=== PATIENT | male | born 1975 | race Caucasian/White ===

== ENCOUNTER 2017-07-18 05:56 | Inpatient (IN) | payer OTHER, MEDICAID ==
[~2017-07-18] VITALS: Ht 157.5 cm; Wt 94.3 kg
[~2017-07-18 05:56] MED LIST: BENZ0.5T6 PO; CARB200T6 PO; DIVA500T35 PO; OMEP20 PO; RISP2TAB4 PO
[2017-07-18 09:41] VITALS: BP 137/78
[2017-07-18] MEDS ORDERED: ZOLPIDEM TARTRATE 10 MG TABLET PO PRN (10:00)
[2017-07-18] MEDS ORDERED: LORazepam 2 MG TABLET PO PRN (10:00)
[2017-07-18] MEDS ORDERED: HALOPERIDOL 5 MG TABLET PO PRN (10:00)
[2017-07-18 10:32] VITALS: BP 133/80
[2017-07-18] MEDS ORDERED: PNEUMOCOCCAL VACCINE POLYVALENT 0.5 ML VIAL [PPSV23] IM ONE (11:00)
[2017-07-18] MEDS: CarBAMazepine 200 MG TABLET PO SCH (12:36)
[2017-07-18 16:05] VITALS: BP 118/75
[2017-07-18] MEDS: BACITRACIN 28.4 GM OINTMENT TP SCH (16:38)
[2017-07-18] MEDS: BENZTROPINE MESYLATE 0.5 MG TABLET PO SCH (16:39)
[2017-07-18] MEDS: RisperiDONE 2 MG TABLET PO SCH (16:39)
[2017-07-18] MEDS: DIVALPROEX SODIUM 500 MG DR TABLET PO SCH (16:39)
[2017-07-19 00:04] VITALS: BP 115/60
[2017-07-19 07:02] LABS: BASOPHILS % (AUTO) 0.5 % (0.0-2.0); EOSINOPHILS % (AUTO) 2.2 % (1.0-6.0); HEMATOCRIT 38.2 % (41-53); LYMPHOCYTES % (AUTO) 26.1 % (22.0-44.0); MEAN CORPUSCULAR HEMOGLOBIN 29.5 pg (26.0-34.0); MEAN CORPUSCULAR VOLUME 87 fL (80-100); MONOCYTES # (AUTO) 0.8 K/uL (0.1-1.0); MONOCYTES % (AUTO) 10.6 % (2.0-9.0); NEUTROPHILS # (AUTO) 4.7 K/uL (1.8-7.7); NEUTROPHILS % (AUTO) 60.6 % (40.0-70.0); PLATELET COUNT (AUTO) 208 K/uL (150-450); RED CELL DISTRIBUTION WIDTH 14.5 % (11.5-14.5); WHITE BLOOD COUNT (AUTO) 7.8 K/uL (4.5-11.0)
[2017-07-19 07:18] LABS: HEMOGLOBIN A1C 5.9 % (4.5-6.2)
[2017-07-19 07:30] LABS: ALANINE AMINOTRANSFERASE 22 U/L (12-78); ALBUMIN 3.5 g/dL (3.4-5.0); ANION GAP 8 mmol/L (8-16); ASPARTATE AMINOTRANSFERASE 18 U/L (15-37); BILIRUBIN,TOTAL 0.2 mg/dL (0.1-1.0); CALCIUM, TOTAL 8.4 mg/dL (8.8-10.5); CARBON DIOXIDE 27 mmol/L (22-29); CHLORIDE 101 mmol/L (98-107); CHOL/HDL RATIO 4.4 (4.2-7.3); CREATININE 0.84 mg/dL (0.60-1.30); GLOMERULAR FILTR. RATE CALC > 60 mL/min (>60); POTASSIUM 4.4 mmol/L (3.5-5.1); SODIUM SERUM 136 mmol/L (136-145); THYROID STIMULATING HORMONE 3.37 uIU/mL (0.36-3.74); TOTAL PROTEIN, SERUM 6.6 g/dL (6.4-8.2); UREA NITROGEN, BLOOD 19 mg/dL (7-18)
[2017-07-19 08:05] VITALS: BP 116/74
[2017-07-19] MEDS: DIVALPROEX SODIUM 500 MG DR TABLET PO SCH ×2 (08:35→16:37)
[2017-07-19] MEDS: RisperiDONE 2 MG TABLET PO SCH ×2 (08:35→16:37)
[2017-07-19] MEDS: CarBAMazepine 200 MG TABLET PO SCH (08:35)
[2017-07-19] MEDS: BENZTROPINE MESYLATE 0.5 MG TABLET PO SCH ×2 (08:35→16:37)
[2017-07-19] MEDS: BACITRACIN 28.4 GM OINTMENT TP SCH ×2 (08:35→16:37)
[2017-07-19 16:10] VITALS: BP 119/72
[2017-07-19] MEDS ORDERED: IBUPROFEN 400 MG TABLET PO PRN (17:45)
[2017-07-19] MEDS ORDERED: ACETAMINOPHEN 325 MG TABLET PO PRN (17:45)
[2017-07-20 00:33] VITALS: BP 103/63
[2017-07-20] MEDS: CarBAMazepine 200 MG TABLET PO SCH (08:04)
[2017-07-20] MEDS: RisperiDONE 2 MG TABLET PO SCH (08:04)
[2017-07-20] MEDS: DIVALPROEX SODIUM 500 MG DR TABLET PO SCH (08:04)
[2017-07-20] MEDS: BENZTROPINE MESYLATE 0.5 MG TABLET PO SCH (08:04)
[2017-07-20] MEDS: BACITRACIN 28.4 GM OINTMENT TP SCH (08:05)
[2017-07-20 08:24] VITALS: BP 117/64
[2017-07-20 08:45] LABS: CHOL/HDL RATIO 4.3 (4.2-7.3)
[2017-07-20] MEDS ORDERED: OMEPRAZOLE 20 MG CAPSULE PO SCH (09:00)
== END 2017-07-20 11:25 | disposition home or self-care (01) | DRG 885 ==
LOC: EDSTATUS 05:57 → B2X 10:17
PROVIDERS: ADMIT Psychiatry & Neurology Child & Adolescent Psychiatry; ATTEND Psychiatry & Neurology Child & Adolescent Psychiatry
PROC: 3E0234Z Introduction of Serum, Toxoid and Vaccine into Muscle, Percutaneous Approach (ICD-10-PCS; principal; 2017-07-18)
DX: F31.64 Bipolar disorder, current episode mixed, severe, with psychotic features (principal); G40.909 Epilepsy, unspecified, not intractable, without status epilepticus; J44.9 Chronic obstructive pulmonary disease, unspecified; E03.9 Hypothyroidism, unspecified; E78.5 Hyperlipidemia, unspecified; K21.9 Gastro-esophageal reflux disease without esophagitis; M19.90 Unspecified osteoarthritis, unspecified site; Z23 Encounter for immunization
CPT/HCPCS: 83036; 84439; 84443; 90471; 99285

== ENCOUNTER 2018-04-20 23:24 | Emergency (ER) | payer MEDICARE, MEDICAID ==
[~2018-04-20] VITALS: Ht 185.4 cm; Wt 109.1 kg
[~2018-04-20 23:24] MED LIST changes: +BENZ0.5T44 PO; -BENZ0.5T6 PO
[2018-04-21 00:37] LABS: BASOPHILS % (AUTO) 0.8 % (0.0-2.0); EOSINOPHILS % (AUTO) 0.6 % (1.0-6.0); HEMATOCRIT 40.3 % (41-53); HEMOGLOBIN 14.1 g/dL (13.5-17.5); LYMPHOCYTES # (AUTO) 2.6 K/uL (1.0-4.8); LYMPHOCYTES % (AUTO) 21.1 % (22.0-44.0); MEAN CORPUSCULAR HEMOGLOBIN 29.1 pg (26.0-34.0); MEAN CORPUSCULAR HGB CONC 34.8 G/dL (31.0-37.0); MEAN CORPUSCULAR VOLUME 84 fL (80-100); MONOCYTES # (AUTO) 0.9 K/uL (0.1-1.0); MONOCYTES % (AUTO) 7.3 % (2.0-9.0); NEUTROPHILS # (AUTO) 8.8 K/uL (1.8-7.7); NEUTROPHILS % (AUTO) 70.2 % (40.0-70.0); PLATELET COUNT (AUTO) 299 K/uL (150-450); RED BLOOD CELL COUNT(AUTO) 4.82 MIL/uL (4.50-5.90); RED CELL DISTRIBUTION WIDTH 15.4 % (11.5-14.5)
[2018-04-21 00:49] LABS: ANION GAP 10 mmol/L (8-16); CALCIUM, TOTAL 9.1 mg/dL (8.8-10.5); CARBON DIOXIDE 29 mmol/L (22-29); CHLORIDE 99 mmol/L (98-107); CREATININE 0.91 mg/dL (0.60-1.30); GLOMERULAR FILTR. RATE CALC > 60 mL/min (>60); GLUCOSE,RANDOM 123 mg/dL (70-110); POTASSIUM 4.5 mmol/L (3.5-5.1); SODIUM SERUM 138 mmol/L (136-145); UREA NITROGEN, BLOOD 16 mg/dL (7-18)
[2018-04-21 00:56] LABS: ALANINE AMINOTRANSFERASE 19 U/L (12-78); ALBUMIN 3.8 g/dL (3.4-5.0); ALKALINE PHOSPHATASE 119 U/L (46-116); ASPARTATE AMINOTRANSFERASE 19 U/L (15-37); BILIRUBIN,TOTAL 0.3 mg/dL (0.1-1.0); TOTAL PROTEIN, SERUM 8.7 g/dL (6.4-8.2)
[2018-04-21 04:05] VITALS: BP 128/74
[2018-04-21] MEDS ORDERED: HALOPERIDOL 5 MG TABLET PO ONE (04:15)
== END 2018-04-21 04:58 | disposition home or self-care (01) ==
LOC: EMS 23:26
DX: F31.9 Bipolar disorder, unspecified (principal); F20.9 Schizophrenia, unspecified; M19.90 Unspecified osteoarthritis, unspecified site; F17.210 Nicotine dependence, cigarettes, uncomplicated
CPT/HCPCS: 36415; 80053; 85025; 99284; G0480

== ENCOUNTER 2021-08-08 09:47 | Inpatient (IN) | payer OTHER, MEDICAID ==
[~2021-08-08] VITALS: Ht 175.3 cm; Wt 97.5 kg
[~2021-08-08 09:47] MED LIST changes: +DIVA-112 PO; -DIVA500T35 PO
[2021-08-08] MEDS ORDERED: LORazepam 2 MG TABLET PO PRN (10:00)
[2021-08-08] MEDS ORDERED: ZOLPIDEM TARTRATE 10 MG TABLET PO PRN (10:00)
[2021-08-08] MEDS ORDERED: HALOPERIDOL 5 MG TABLET PO PRN (10:00)
[2021-08-08 14:46] VITALS: BP 112/68
[2021-08-08 15:26] VITALS: BP 120/80
[2021-08-08 16:10] VITALS: BP 110/67
[2021-08-08] MEDS: BusPIRone HCL 15 MG TABLET PO SCH (16:35)
[2021-08-08] MEDS: QUEtiapine FUMARATE 100 MG TABLET PO SCH (16:36)
[2021-08-08] MEDS: DIVALPROEX SODIUM 500 MG DR TABLET PO SCH (16:36)
[2021-08-08] MEDS: CHLORHEXIDINE GLUCONATE 0.12% 15 ML UDCUP ORAL RINSE PO SCH (17:00)
[2021-08-08 17:47] VITALS: BP 110/67
[2021-08-08] MEDS ORDERED: DOCUSATE SODIUM 100 MG CAPSULE PO PRN (19:30)
[2021-08-08] MEDS ORDERED: CloNIDine HCL 0.1 MG TABLET PO PRN (19:30)
[2021-08-08] MEDS ORDERED: IBUPROFEN 600 MG TABLET PO PRN (19:30)
[2021-08-08] MEDS ORDERED: ONDANSETRON HCL 4 MG TABLET PO PRN (19:30)
[2021-08-08] MEDS ORDERED: BACITRACIN 28 GM OINTMENT TP PRN (19:30)
[2021-08-08] MEDS ORDERED: PETROLATUM,WHITE 28 GM JELLY TP PRN (19:30)
[2021-08-08] MEDS ORDERED: MAGNESIUM HYDROXIDE SUSPENSION 30 ML UDCUP PO PRN (19:30)
[2021-08-08] MEDS ORDERED: ACETAMINOPHEN 325 MG TABLET PO PRN (19:30)
[2021-08-08] MEDS ORDERED: BENZOCAINE/MENTHOL LOZENGE PO PRN (19:30)
[2021-08-08] MEDS ORDERED: LOPERAMIDE HCL 2 MG CAPSULE PO PRN (19:30)
[2021-08-08] MEDS ORDERED: MAG HYDROX/AL HYDROX/SIMETH ES 30 ML SUSPENSION UDCUP PO PRN (19:30)
[2021-08-08] MEDS ORDERED: OMEPRAZOLE 20 MG CAPSULE PO PRN (19:30)
[2021-08-08] MEDS ORDERED: ALBUTEROL SULFATE HFA 90 MCG/PUFF 8 GM INHALER IH PRN (19:30)
[2021-08-08] MEDS ORDERED: AMOXICILLIN TRIHYDRATE 500 MG CAPSULE PO SCH (20:00)
[2021-08-08] MEDS: AMOXICILLIN TRIHYDRATE 500 MG CAPSULE PO SCH (20:10)
[2021-08-08] MEDS: TraZODone HCL 50 MG TABLET PO SCH (20:10)
[2021-08-08] MEDS: ATORVASTATIN CALCIUM 40 MG TABLET PO SCH (20:22)
[2021-08-08 21:50] VITALS: BP 112/71
[2021-08-09 01:51] VITALS: BP 110/73
[2021-08-09 07:39] LABS: BASOPHILS % (AUTO) 0.6 % (0.0-2.0); EOSINOPHILS % (AUTO) 1.8 % (1.0-6.0); HEMATOCRIT 39.7 % (41-53); HEMOGLOBIN 13.2 g/dL (13.5-17.5); LYMPHOCYTES # (AUTO) 2.2 K/uL (1.0-4.8); LYMPHOCYTES % (AUTO) 26.2 % (22.0-44.0); MEAN CORPUSCULAR HEMOGLOBIN 29.6 pg (26.0-34.0); MEAN CORPUSCULAR HGB CONC 33.3 G/dL (31.0-37.0); MEAN CORPUSCULAR VOLUME 89 fL (80-100); MONOCYTES # (AUTO) 0.6 K/uL (0.1-1.0); MONOCYTES % (AUTO) 7.4 % (2.0-9.0); NEUTROPHILS # (AUTO) 5.2 K/uL (1.8-7.7); PLATELET COUNT (AUTO) 223 K/uL (150-450); RED BLOOD CELL COUNT(AUTO) 4.47 MIL/uL (4.50-5.90)
[2021-08-09 07:54] LABS: HEMOGLOBIN A1C 6.3 % (3.8-5.6)
[2021-08-09] MEDS: CHLORHEXIDINE GLUCONATE 0.12% 15 ML UDCUP ORAL RINSE PO SCH ×2 (08:05→21:27)
[2021-08-09] MEDS: AMOXICILLIN TRIHYDRATE 500 MG CAPSULE PO SCH ×3 (08:05→16:02)
[2021-08-09] MEDS: LACTOBAC ACID/BULG/BIFID/THERM TABLET PO SCH (08:05)
[2021-08-09] MEDS: FLUoxetine HCL 20 MG CAPSULE PO SCH (08:06)
[2021-08-09] MEDS: CarBAMazepine 200 MG TABLET PO SCH (08:06)
[2021-08-09] MEDS: QUEtiapine FUMARATE 100 MG TABLET PO SCH ×2 (08:06→16:03)
[2021-08-09] MEDS: DIVALPROEX SODIUM 500 MG DR TABLET PO SCH ×2 (08:06→16:02)
[2021-08-09] MEDS: BusPIRone HCL 15 MG TABLET PO SCH ×3 (08:06→16:02)
[2021-08-09 08:11] LABS: ALANINE AMINOTRANSFERASE 37 U/L (12-78); ALBUMIN 3.6 g/dL (3.4-5.0); ALKALINE PHOSPHATASE 134 U/L (46-116); ANION GAP 9 mmol/L (8-16); ASPARTATE AMINOTRANSFERASE 27 U/L (15-37); BILIRUBIN,TOTAL 0.3 mg/dL (0.1-1.0); CALCIUM, TOTAL 8.5 mg/dL (8.8-10.5); CARBON DIOXIDE 27 mmol/L (22-29); CHLORIDE 104 mmol/L (98-107); CHOL/HDL RATIO 3.9 (4.2-7.3); CHOLESTEROL 116 mg/dL (131-200); CREATININE 0.76 mg/dL (0.60-1.30); FREE T4 (FREE THYROXINE) 0.96 ng/dL (0.76-1.46); GLOMERULAR FILTR. RATE CALC > 60 mL/min (>60); GLUCOSE,RANDOM 109 mg/dL (70-110); HDL CHOLESTEROL 30 mg/dL (40-60); LDL CHOL (CALC.) 66 mg/dL (0-130); POTASSIUM 4.4 mmol/L (3.5-5.1); SODIUM SERUM 140 mmol/L (136-145); THYROID STIMULATING HORMONE 1.87 uIU/mL (0.36-3.74); TOTAL PROTEIN, SERUM 7.4 g/dL (6.4-8.2); TRIGLYCERIDES 99 mg/dL (15-150); UREA NITROGEN, BLOOD 19 mg/dL (7-18)
[2021-08-09 08:30] VITALS: BP 121/78
[2021-08-09] MEDS: MULTIVITAMINS WITH MINERALS, THERAPEUTIC TABLET PO SCH (12:53)
[2021-08-09 16:04] VITALS: BP 112/65
[2021-08-09] MEDS: TraZODone HCL 50 MG TABLET PO SCH (21:27)
[2021-08-09] MEDS: ATORVASTATIN CALCIUM 40 MG TABLET PO SCH (21:27)
[2021-08-10] MEDS: BusPIRone HCL 15 MG TABLET PO SCH ×3 (08:03→16:09)
[2021-08-10] MEDS: CarBAMazepine 200 MG TABLET PO SCH (08:03)
[2021-08-10] MEDS: AMOXICILLIN TRIHYDRATE 500 MG CAPSULE PO SCH ×3 (08:03→16:09)
[2021-08-10] MEDS: LACTOBAC ACID/BULG/BIFID/THERM TABLET PO SCH (08:04)
[2021-08-10] MEDS: FLUoxetine HCL 20 MG CAPSULE PO SCH (08:04)
[2021-08-10] MEDS: QUEtiapine FUMARATE 100 MG TABLET PO SCH ×2 (08:04→16:09)
[2021-08-10] MEDS: CHLORHEXIDINE GLUCONATE 0.12% 15 ML UDCUP ORAL RINSE PO SCH ×2 (08:04→19:57)
[2021-08-10] MEDS: MULTIVITAMINS WITH MINERALS, THERAPEUTIC TABLET PO SCH (08:04)
[2021-08-10] MEDS: DIVALPROEX SODIUM 500 MG DR TABLET PO SCH ×2 (08:04→16:09)
[2021-08-10 08:50] VITALS: BP 125/75
[2021-08-10 16:09] VITALS: BP 119/61
[2021-08-10] MEDS: TraZODone HCL 50 MG TABLET PO SCH (19:57)
[2021-08-10] MEDS: ATORVASTATIN CALCIUM 40 MG TABLET PO SCH (19:57)
[2021-08-11 05:59] VITALS: BP 119/62
[2021-08-11] MEDS: LACTOBAC ACID/BULG/BIFID/THERM TABLET PO SCH (08:14)
[2021-08-11] MEDS: BusPIRone HCL 15 MG TABLET PO SCH ×3 (08:15→16:08)
[2021-08-11] MEDS: DIVALPROEX SODIUM 500 MG DR TABLET PO SCH ×2 (08:15→16:08)
[2021-08-11] MEDS: CarBAMazepine 200 MG TABLET PO SCH (08:15)
[2021-08-11] MEDS: FLUoxetine HCL 20 MG CAPSULE PO SCH (08:15)
[2021-08-11] MEDS: AMOXICILLIN TRIHYDRATE 500 MG CAPSULE PO SCH ×3 (08:15→16:08)
[2021-08-11] MEDS: QUEtiapine FUMARATE 100 MG TABLET PO SCH ×2 (08:16→16:10)
[2021-08-11] MEDS: CHLORHEXIDINE GLUCONATE 0.12% 15 ML UDCUP ORAL RINSE PO SCH ×2 (08:16→16:08)
[2021-08-11] MEDS: MULTIVITAMINS WITH MINERALS, THERAPEUTIC TABLET PO SCH (08:16)
[2021-08-11 08:22] VITALS: BP 129/70
[2021-08-11 16:03] VITALS: BP 105/64
[2021-08-11] MEDS: TraZODone HCL 50 MG TABLET PO SCH (20:00)
[2021-08-11] MEDS: ATORVASTATIN CALCIUM 40 MG TABLET PO SCH (20:00)
[2021-08-12 02:21] VITALS: BP 109/62
[2021-08-12] MEDS: FLUoxetine HCL 20 MG CAPSULE PO SCH (08:03)
[2021-08-12] MEDS: LACTOBAC ACID/BULG/BIFID/THERM TABLET PO SCH (08:04)
[2021-08-12] MEDS: MULTIVITAMINS WITH MINERALS, THERAPEUTIC TABLET PO SCH (08:04)
[2021-08-12] MEDS: QUEtiapine FUMARATE 100 MG TABLET PO SCH (08:04)
[2021-08-12 08:05] VITALS: BP 119/63
[2021-08-12] MEDS: AMOXICILLIN TRIHYDRATE 500 MG CAPSULE PO SCH ×2 (08:05→14:28)
[2021-08-12] MEDS: CarBAMazepine 200 MG TABLET PO SCH (08:05)
[2021-08-12] MEDS: BusPIRone HCL 15 MG TABLET PO SCH ×2 (08:05→14:28)
[2021-08-12] MEDS: DIVALPROEX SODIUM 500 MG DR TABLET PO SCH (08:05)
[2021-08-12] MEDS: CHLORHEXIDINE GLUCONATE 0.12% 15 ML UDCUP ORAL RINSE PO SCH (08:06)
[2021-08-12 13:15] LABS: GLUCOMETER DEV NAME(LOC) POC.BV
[2021-08-12] MEDS ORDERED: CARB100 PO (13:22)
[2021-08-12] MEDS ORDERED: ATOR40TA28 PO (13:25)
[2021-08-12] MEDS ORDERED: AMOX500C2 PO (13:25)
[2021-08-12] MEDS ORDERED: ACID1TAB13 PO (13:31)
[2021-08-12] MEDS ORDERED: BUSP15 PO (13:34)
[2021-08-12] MEDS ORDERED: QUET100T PO (13:35)
[2021-08-12] MEDS ORDERED: TRAZ-252 PO (13:36)
[2021-08-12] MEDS ORDERED: FLUO20CA36 PO (13:36)
== END 2021-08-12 19:26 | disposition home or self-care (01) | DRG 885 ==
LOC: B2X 13:34
PROVIDERS: ADMIT Psychiatry & Neurology Psychiatry; ATTEND Psychiatry & Neurology Psychiatry
DX: F25.9 Schizoaffective disorder, unspecified (principal); R45.851 Suicidal ideations; F32.9 Major depressive disorder, single episode, unspecified; F41.9 Anxiety disorder, unspecified; G40.909 Epilepsy, unspecified, not intractable, without status epilepticus; G47.00 Insomnia, unspecified; I10 Essential (primary) hypertension; K04.7 Periapical abscess without sinus; K21.9 Gastro-esophageal reflux disease without esophagitis; K59.00 Constipation, unspecified; Z20.822 Contact with and (suspected) exposure to COVID-19; Z79.899 Other long term (current) drug therapy
CPT/HCPCS: 80053; 80061; 80164; 83036; 84436; 84439; 84443; 85025

== ENCOUNTER 2022-05-07 04:15 | Emergency (ER) | payer MEDICARE, MEDICAID ==
[~2022-05-07] VITALS: Ht 175.3 cm; Wt 81.8 kg
[~2022-05-07 04:15] MED LIST changes: +ACID1TAB13 PO; +AMOX500C2 PO; +ATOR40TA28 PO; -BENZ0.5T44 PO; +BUSP15 PO; +FLUO20CA36 PO; -OMEP20 PO; +QUET100T PO; -RISP2TAB4 PO; +TRAZ-252 PO
[2022-05-07 04:54] LABS: BASOPHILS % (AUTO) 0.8 % (0.0-2.0); EOSINOPHILS % (AUTO) 1.5 % (1.0-6.0); HEMATOCRIT 34.5 % (41-53); LYMPHOCYTES # (AUTO) 2.3 K/uL (1.0-4.8); MEAN CORPUSCULAR HEMOGLOBIN 30.5 pg (26.0-34.0); MEAN CORPUSCULAR HGB CONC 34.7 G/dL (31.0-37.0); MEAN CORPUSCULAR VOLUME 88 fL (80-100); MONOCYTES # (AUTO) 0.9 K/uL (0.1-1.0); MONOCYTES % (AUTO) 10.7 % (2.0-9.0); NEUTROPHILS # (AUTO) 4.9 K/uL (1.8-7.7); PLATELET COUNT (AUTO) 171 K/uL (150-450); RED BLOOD CELL COUNT(AUTO) 3.93 MIL/uL (4.50-5.90); RED CELL DISTRIBUTION WIDTH 15.9 % (11.5-14.5)
[2022-05-07 05:13] LABS: ANION GAP 11 mmol/L (8-16); CALCIUM, TOTAL 8.4 mg/dL (8.8-10.5); CARBON DIOXIDE 26 mmol/L (22-29); CHLORIDE 101 mmol/L (98-107); CREATININE 0.89 mg/dL (0.60-1.30); GLOMERULAR FILTR. RATE CALC > 60 mL/min (>60); GLUCOSE,RANDOM 105 mg/dL (70-110); POTASSIUM 3.5 mmol/L (3.5-5.1); SODIUM SERUM 138 mmol/L (136-145); UREA NITROGEN, BLOOD 33 mg/dL (7-18)
[2022-05-07 05:17] LABS: ALANINE AMINOTRANSFERASE 101 U/L (12-78); ALBUMIN 3.8 g/dL (3.4-5.0); ALKALINE PHOSPHATASE 85 U/L (46-116); ASPARTATE AMINOTRANSFERASE 76 U/L (15-37); BILIRUBIN,TOTAL 0.5 mg/dL (0.1-1.0); TOTAL PROTEIN, SERUM 7.2 g/dL (6.4-8.2)
[2022-05-07 11:02] LABS: COVID AG,FIA SOURCE NASOPHARYNGEAL
[2022-05-07] MEDS ORDERED: FLUoxetine HCL 20 MG CAPSULE PO ONE (12:15)
[2022-05-07] MEDS ORDERED: DIVALPROEX SODIUM 250 MG DR TABLET PO ONE (12:15)
[2022-05-07] MEDS ORDERED: BusPIRone HCL 15 MG TABLET PO ONE (12:15)
[2022-05-07 12:30] VITALS: BP 132/74
== END 2022-05-07 13:34 | disposition home or self-care (01) ==
LOC: EMS 04:15
DX: R45.851 Suicidal ideations (principal); M19.90 Unspecified osteoarthritis, unspecified site; F31.9 Bipolar disorder, unspecified; F20.9 Schizophrenia, unspecified; F17.210 Nicotine dependence, cigarettes, uncomplicated; Z20.822 Contact with and (suspected) exposure to COVID-19; Z86.69 Personal history of other diseases of the nervous system and sense organs; Z98.890 Other specified postprocedural states
CPT/HCPCS: 36415; 80053; 85025; 87426; 99285; G0480

== ENCOUNTER 2025-01-17 15:18 | Emergency (ER) | payer MEDICARE, MEDICAID ==
[~2025-01-17] VITALS: Ht 177.8 cm; Wt 87.7 kg
[~2025-01-17 15:18] MED LIST changes: +CARB-92 PO; -CARB200T6 PO; +FLUO-418 PO; -FLUO20CA36 PO
[2025-01-17 15:41] VITALS: TEMP 98.3
[2025-01-17 16:27] LABS: APPEARANCE,URINE CLEAR (CLEAR); BILIRUBIN,URINE NEGATIVE (NEGATIVE); COLOR,URINE LIGHT YELLOW (YELLOW); GLUCOSE, URINE (UA) NEGATIVE (NEGATIVE); KETONES,URINE NEGATIVE (NEGATIVE); LEUKOCYTE ESTERASE ,URINE MODERATE (NEGATIVE); NITRATE,URINE NEGATIVE (NEGATIVE); OCCULT BLOOD,URINE NEGATIVE (NEGATIVE); PH,URINE 6.5 (5.0-8.0); PH,URINE DRUG SCREEN 6.5 (5.0-8.0); PROTEIN,URINE NEGATIVE (NEGATIVE); SPECIFIC GRAVITIY, URINE 1.006 (1.003-1.030); UROBILINOGEN,URINE <=1.0 mg/dL (<=1.0)
[2025-01-17 16:45] LABS: ALCOHOL, URINE DRUG SCREEN NEGATIVE (NEGATIVE); AMPHET/METH SCREEN,URINE NEGATIVE (NEGATIVE); BARBITURATE SCREEN, URINE NEGATIVE (NEGATIVE); BENZODIAZEPINES SCREEN,URINE NEGATIVE (NEGATIVE); CANNABINOID SCREEN,URINE NEGATIVE (NEGATIVE); COCAINE SCREEN,URINE NEGATIVE (NEGATIVE); METHADONE SCREEN, URINE NEGATIVE (NEGATIVE); OPIATE SCREEN,URINE NEGATIVE (NEGATIVE); PHENCYCLIDINE SCREEN,URINE NEGATIVE (NEGATIVE)
[2025-01-17 17:14] LABS: BACTERIA,URINE Few /HPF (None Seen); RBC,URINE 0-2 /HPF (0-2); SQUAMOUS EPITHELIAL CELL,UR Few /LPF (None Seen); WBC,URINE 26-50 /HPF (0-5)
[2025-01-17 18:13] VITALS: BP 137/85; PULSE 73; RESP 18; O2SAT 98
== END 2025-01-17 18:24 ==
LOC: EMS 15:18
DX: F25.9 Schizoaffective disorder, unspecified (principal); F31.9 Bipolar disorder, unspecified; M19.90 Unspecified osteoarthritis, unspecified site; F17.210 Nicotine dependence, cigarettes, uncomplicated; Z79.899 Other long term (current) drug therapy; Z98.890 Other specified postprocedural states
CPT/HCPCS: 80307; 81001; 87086; 99284